=== PATIENT | female | born 1955 | race Two or more races ===

== ENCOUNTER 2024-10-26 17:59 | Emergency (ER) | payer OTHER ==
[~2024-10-26] VITALS: Ht 172.7 cm; Wt 97.5 kg
[2024-10-26 23:15] LABS: HEMATOCRIT 29.5 % (36.0-45.00); MEAN CELL VOLUME 84.7 fL (80.00-100.00); MEAN CORPUSCULAR HGB CONC 32.6 g/dl (32.0-36.0); PLATELET COUNT 546 K/uL (150-450); RED BLOOD COUNT 3.48 M/uL (4.00-6.00); RED CELL DISTRIBUTION WIDTH 15.7 % (11.5-14.5)
[2024-10-26 23:16] LABS: PH,URINE 5.5 (5.0-8.0); URINE APPEARANCE Cloudy; URINE BILIRRUBIN Moderate (NEGATIVE); URINE BLOOD Negative; URINE COLOR Dark Yellow; URINE GLUCOSE Negative (NEGATIVE); URINE KETONE 15 (NEGATIVE); URINE LEUKOCYTE Moderate; URINE NITRATE Negative
[2024-10-26 23:20] LABS: URINE BACTERIA 3936.2 uL (0.0-1933); URINE EPITHELIAL CELLS 90.4 uL (0.0-38.8); URINE RBC 18.4 uL (0.0-20.8); URINE WBC 1321.1 uL (0.0-23.2)
[2024-10-26 23:28] LABS: HEMOGLOBIN 9.6 g/dL (12.0-15.00); MEAN CORPUSCULAR HEMOGLOBIN 27.5 pg (27.00-32.0)
[2024-10-26 23:51] LABS: URINE CAST > 21.83 uL (0.0-1.40); URINE PROTEIN 100 (NEGATIVE)
[2024-10-26 23:53] LABS: URINE MUCUS SCANT
[2024-10-27] MEDS ORDERED: CEFTRIAXONE SODIUM 1,000 MG VIAL IV ONE (01:15)
[2024-10-27 01:17] LABS: ALBUMIN 2.7 gm/dL (3.4-5.0); BILIRUBIN TOTAL 0.42 mg/dL (0.3-1.2); BILIRUBIN,CONJUGATED 0.16 mg/dL (0.0-0.2); BILIRUBIN,UNCONJUGATED 0.26 mg/dL (0.0-0.6); CREATININE SERUM 1.27 mg/dL (0.55-1.02); GFR 42.1; POTASSIUM 3.03 mEq/L (3.5-5.1); TOTAL PROTEIN 6.7 gm/dL (6.4-8.2)
[2024-10-27] MEDS ORDERED: 0.9 % SODIUM CHLORIDE 1,000 ML IV STA (04:53)
[2024-10-27 06:29] LABS: HEMATOCRIT 27.7 % (36.0-45.00); HEMOGLOBIN 9.2 g/dL (12.0-15.00); MEAN CELL VOLUME 84.6 fL (80.00-100.00); MEAN CORPUSCULAR HGB CONC 33.1 g/dl (32.0-36.0); PLATELET COUNT 485 K/uL (150-450); RED BLOOD COUNT 3.28 M/uL (4.00-6.00); RED CELL DISTRIBUTION WIDTH 15.6 % (11.5-14.5)
== END 2024-10-27 07:35 | disposition home or self-care (01) ==
LOC: ER 18:01
PROVIDERS: Emergency Medicine
DX: R53.81 Other malaise (principal); I10 Essential (primary) hypertension; D64.9 Anemia, unspecified
CPT/HCPCS: 36415; 71046; 74176; 93005; 96365; 96366; 99284; J7030